=== PATIENT | female | born 1990 | race Caucasian/White ===

== ENCOUNTER 2023-08-21 13:52 | Emergency (ER) | payer OTHER ==
[2023-08-21 14:17] VITALS: RESP 18
[2023-08-21] MEDS ORDERED: KETOROLAC 15 MG/ML 1 ML VIAL IM STA (14:19)
[2023-08-21] MEDS ORDERED: diazePAM 5 MG TAB PO STA (14:19)
--- NOTE | 2023-08-21 14:21 | ED ---
Neck Injury/Pain HPI - General Stated Complaint: back/neck pain,tinkling fingers Mode of arrival: ambulatory Limitations: no limitations - History of Present Illness Initial Comments: The patient's a 32-year-old female with a history of gastroparesis who presents emergency room with complaints of neck pain and tingling down the arms and into the fingers. Patient states that her neck pain and tingling started 4 days ago after she had violent vomiting secondary to her gastroparesis. She states that she had been retching very hard and when she woke up the next morning she had significant pain to the neck that is worse with movement. She states that the pain radiates into the arm and she has intermittent tingling in the fingers. Patient went to her chiropractor who would not treat her and they told her she needed to go to the emergency room or go home and rest and ice the neck. Patient states that the pain is worse with rotation of the neck. She denies any weakness of the fingers hand or upper extremities but states she has tingling at the tips of her fingers. she states it feels like all of the fingers, bilaterally. - Related Data Previous Rx's Medication Instructions Recorded Cyclobenzaprine [Flexeril] 5 mg PO TID PRN #15 tablet 08/21/23 HYDROcodone/APAP 5-325MG [[place] 5] 1 each PO Q6HR PRN #12 tab 08/21/23 Naproxen [Naprosyn] 375 mg PO Q12HR 109 Days #20 tablet 08/21/23 Allergies Allergy/AdvReac Type Severity Reaction Status Date / Time amoxicillin [From Augmentin] AdvReac Nausea & Verified 08/21/23 14:02 Vomiting ciprofloxacin [From Cipro] AdvReac Nausea & Verified 08/21/23 14:02 Vomiting clavulanic acid AdvReac Nausea & Verified 08/21/23 14:02 [From Augmentin] Vomiting sulfamethoxazole AdvReac Nausea & Verified 08/21/23 14:02 [From Bactrim] Vomiting trimethoprim [From Bactrim] AdvReac Nausea & Verified 08/21/23 14:02 Vomiting Review of Systems ROS Statement: Those systems with pertinent positive or pertinent negative responses have been documented in the HPI. ROS Other: All systems not noted in ROS Statement are negative. Past Medical History Additional Past Medical History / Comment(s): gastrophoresis, takayasu's arteritis History of Any Multi-Drug Resistant Organisms: None Reported Past Surgical History: Coronary Bypass/CABG Past Psychological History: Anxiety, Depression Smoking Status: Never smoker Past Alcohol Use History: None Reported Past Drug Use History: None Reported General Exam Limitations: no limitations General appearance: alert, in no apparent distress Head exam: Present: atraumatic Eye exam: Present: normal appearance, PERRL ENT exam: Present: normal exam Neck exam: Present: tenderness (Tenderness along the bilateral trapezius muscles without any vertebral point tenderness or midline tenderness), other (Normal range of motion shanked of the upper extremities bilaterally. Neurologically intact.). Absent: meningismus, lymphadenopathy Respiratory exam: Present: normal lung sounds bilaterally Cardiovascular Exam: Present: regular rate Extremities exam: Present: full ROM Back exam: Present: full ROM Neurological exam: Present: alert, oriented X3, CN II-XII intact Psychiatric exam: Present: normal affect, normal mood Skin exam: Present: warm, dry Course Vital Signs 08/21/23 08/21/23 13:58 16:46 Temperature 98.2 F 98.3 F Pulse Rate 91 89 Respiratory 18 18 Rate Blood Pressure 194/74 173/71 O2 Sat by Pulse 98 100 Oximetry - Reevaluation(s) Reevaluation #1: 08/21/23 1640 Patient is feeling better after pain medicine, muscle relaxants and anti- inflammatory. She is neurologically intact. She has no dizziness no shortness breath. Her symptoms are consistent with a cervical strain. She has no midline tenderness and is tender along the paraspinal muscles of the cervical spine. I discussed imaging results with the patient. I discussed treatment plan including heat, working on range of motion and muscle relaxers. I reiterated the importance of working on range of motion as she is wanting to not move her head or neck at all. I discussed follow up in size return to the emergency room. Patient and significant other understand and agree to treatment discharge plan. She understands she is not to work or travel taking pain medication or muscle relaxers and she is to stagger the dosing of these medications. Medical Decision Making - Medical Decision Making Was pt. sent in by a medical professional or institution (, PA, NEWS DEPARTMENT INTERN, urgent care, hospital, or assisted...) When possible be specific @ -[No] Did you speak to anyone other than the patient for history (EMS, parent, family, police, friend...)? What history was obtained from this source @ -[No] Did you review nursing and triage notes (agree or disagree)? Why? @ -[I reviewed and agree with nursing and triage notes] Were old charts reviewed (outside hosp., previous admission, EMS record, old EKG, old radiological studies, urgent care reports/EKG's, assisted records)? Report findings @ -[No old charts were reviewed] Differential Diagnosis (chest pain, altered mental status, abdominal pain women, abdominal pain men, vaginal bleeding, weakness, fever, dyspnea, syncope, headache, dizziness, GI bleed, back pain, seizure, CVA, palpatations, mental health, musculoskeletal)? @ -Cervical strain, muscle spasm, cervical radiculopathy EKG interpreted by me (3pts min.). @ -[As above] X-rays interpreted by me (1pt min.). @ -[None done] CT interpreted by me (1pt min.). @ -CT scan shows cervical straightening consistent with muscle spasm. Thyroid nodule seen. U/S interpreted by me (1pt. min.). @ -[None done] What testing was considered but not performed or refused? (CT, X-rays, U/S, labs)? Why? @ -[None] What meds were considered but not given or refused? Why? @ -[None] Did you discuss the management of the patient with other professionals (professionals i.e. , PA, NEWS DEPARTMENT INTERN, lab, RT, psych nurse, social economist, lawyer criminal, teacher, occupational medicine officer, watch case polisher)? Give summary @ -[No] Was smoking cessation discussed for >3mins.? @ -[No] Was critical care preformed (if so, how long)? @ -[No] Were there social determinants of health that impacted care today? How? (Homelessness, low income, unemployed, alcoholism, drug addiction, transportation, low edu. Level, literacy, decrease access to med. care, fci, rehab)? @ -[No] Was there de-escalation of care discussed even if they declined (Discuss DNR or withdrawal of care, Hospice)? DNR status @ -[No] What co-morbidities impacted this encounter? (DM, HTN, Smoking, COPD, CAD, Cancer, CVA, ARF, Chemo, Hep., AIDS, mental health diagnosis, sleep apnea, morbid obesity)? @ -[None] Was patient admitted / discharged? Hospital course, mention meds given and rou te, prescriptions, significant lab abnormalities, going to OR and other pertinent info. @ -Patient is well-appearing and in the emergency room. She is nontoxic appearing and is neurologically intact. NIH of 0. Normal range of motion of the upper extremities. Normal strength of the upper extremities and all 5 fingers bilaterally. Patient is stable to follow up as an outpatient. Discussed treatment plan of the cervical spasm and cervical radiculopathy with the patient. Reiterated the importance of working on range of motion with the patient. Discussed use of heat and medications as needed. Discussed signs return to the emergency room. She understands and agrees to treatment discharge plan. I discussed patient's symptoms workup and disposition with attending anette Posadas Undiagnosed new problem with uncertain prognosis? @ -[No] Drug Therapy requiring intensive monitoring for toxicity (Heparin, Nitro, Insulin, Cardizem)? @ -[No] Were any procedures done? @ -[No] Diagnosis/symptom? @ -[Cervical spasm, cervical radiculopathy, neck pain Acute, or Chronic, or Acute on Chronic? @ -[Acute Uncomplicated (without systemic symptoms) or Complicated (systemic symptoms)? @ -[default] Side effects of treatment? @ -[No] Exacerbation, Progression, or Severe Exacerbation? @ -[No] Poses a threat to life or bodily function? How? (Chest pain, [place], [place], pneumonia, PE, COPD, DKA, ARF, appy, cholecystitis, CVA, Diverticulitis, Homicidal, Suicidal, threat to staff... and all critical care pts) @ -[No] - Radiology Data Radiology results: report reviewed, image reviewed Disposition Clinical Impression: Neck muscle spasm, Cervical radiculopathy Disposition: HOME SELF-CARE Condition: Good Instructions (If sedation given, give patient instructions): Cervical Strain (ED), Cervical Radiculopathy (ED), Muscle Spasm (ED) Prescriptions: Cyclobenzaprine [Flexeril] 5 mg PO TID PRN #15 tablet PRN Reason: Muscle Spasm Naproxen [Naprosyn] 375 mg PO Q12HR 109 Days #20 tablet HYDROcodone/APAP 5-325MG [[place] 5] 1 each PO Q6HR PRN #12 tab PRN Reason: Pain Is patient prescribed a controlled substance at d/c from ED?: Yes When asked, does pt state using other controlled substances?: No If prescribed controlled substance>3 days was MAPS reviewed?: Prescribed <3 Days Referrals: Hai Wilson MD [Primary Care Provider] - 1-2 days Time of Disposition: 16:37
[2023-08-21] MEDS ORDERED: oxyCODONE-APAP 5-325MG 1 EACH TAB PO STA (15:20)
--- NOTE | 2023-08-21 16:17 | CT ---
EXAMINATION TYPE: CT cervical spine wo con CT DLP: 268.7 mGycm, Automated exposure control for dose reduction was used. DATE OF EXAM: 08/21/2023 3:37 PM COMPARISON: . CLINICAL INDICATION:Female, 32 years old with history of radiculopathy, pain; PHH, Pt c/o upper back pain that radiates into neck after violently vomiting episode TECHNIQUE: Axial CT images from the skull base to the inferior aspect of T2 we obtained without intra venous contrast. Coronal and sagittal reformatted images were also reviewed. Contrast used:(if blank None) Oral contrast used: (if blank None) FINDINGS: Fracture: None. Osseous structures: Unremarkable Vertebral alignment: Straightening of the normal cervical lordotic curve, likely related to patient p osition. Spinal canal/Neural Foramina: No evidence of significant spinal canal narrowing. No evidence for sign ificant neural foraminal stenosis. Neck soft tissues: Prevertebral soft tissues are within normal limits. Other: The airway is patent. The lung apices are clear. Right-sided 1.2 cm thyroid nodules appreciate d IMPRESSION: 1. No evidence of cervical spine fracture. 2. Mild multilevel degenerative disc disease. 3. Right thyroid nodule. Consider outpatient dedicated thyroid ultrasound if not previously performed .
[2023-08-21 16:48] VITALS: BP 173/71; PULSE 89; TEMP 98.3
== END 2023-08-21 16:48 | disposition home or self-care (01) ==
LOC: EC 13:52
DX: M62.838 Other muscle spasm (principal); M54.12 Radiculopathy, cervical region; Z86.59 Personal history of other mental and behavioral disorders; Z88.2 Allergy status to sulfonamides; Z88.8 Allergy status to other drugs, medicaments and biological substances; Z88.0 Allergy status to penicillin; Z88.1 Allergy status to other antibiotic agents
CPT/HCPCS: 72125; 99284; 96372; J1885